=== PATIENT | female | born 1935 | race Caucasian/White ===

== ENCOUNTER 2018-09-12 01:23 | Inpatient (IN) ==
[2018-09-12] MEDS ORDERED: Naloxone 0.4 MG/ML INJ IVP PRN (03:52)
[2018-09-12] MEDS ORDERED: Albuterol 2.5 MG/3 ML NEBULIZER IH PRN (04:37)
--- NOTE | 2018-09-12 04:39 | Internal Med History&Physical ---
Date of Encounter: 09/12/18 Time of Encounter: 04:04 Internal Medicine - H&P: HPI Chief complaint: Shortness of breath Admitted From: Hospital to Hospital Transfer Plans for Post Hospital Care: Home History of present illness: Ms. Zuñiga is a 82 year old female Patient presented to the emergency room with shortness of breath for 1 day. She is noticed increased wheezing and a productive cough. She did not have any c hest pain, but her cough and shortness of breath woke her from sleep. She had been feeling bad previously before going to bed. She denies sick contacts. She has had occasional left arm pain but denies chest pain. She has a history of DVTs and has been dealing with a subtherapeutic INR. She called ambulance to take her to the hospital for further management. At the [place] emergency room patient's vital signs: Temperature 98.1, pulse 78, respiratory rate 16, blood pressure 132/72. She was saturating 90% on 2 L oxygen. CBC: White count 8.1, hemoglobin 11.1 platelets 150. BMP: Sodium 135, potassium 4.1, chloride 98, bicarbonate 28, BUN 15, creatinine 0.97. Lactic acid 2.5, troponin 0.09, BNP 495. Chest X-ray: Bilateral perihilar opacification, edema versus infiltrate. Mass-like opacity within the right upper lobe measuring 3.8 cm in size. Attention on follow-up imaging. If finding persists, CT evaluation will be indicated. A CT angiogram was ordered: IMPRESSION: 1. Limited study with no definite scan evidence for pulmonary embolus. 2. Right upper lobe pneumonia. 3. Coronary artery disease. 4. Hiatal hernia. EKG showed no ischemic changes. Blood cultures were drawn, and patient was started on ceftriaxone and azithromycin. She was given aspirin as well. Breathing treatments were given. A 500 mL bolus of IV fluids was also given and she was started on IV fluids at 125 mL per hour. As her INR was subtherapeutic at 1.7, and additional 2 mg of Coumadin was given. She was transferred to [facility] for further management. Upon my evaluation, patient is resting comfortably in the hospital bed in no acute distress. She denies chest pain, abdominal pain and diarrhea. She did have some nausea and vomiting earlier has felt constipated. Her shortness of breath has improved after the breathing treatments. She denies significant family history. She does have history of DVT in her right leg, and currently has pain in her left leg that she says is similar to her DVTs she had in her right leg. She is a DNR/DNI. Past Med Surg Social Fam HX - Past Medical History Medical history: arthritis, COPD (With oxygen dependency), coronary artery disease, DVT, GERD, GI bleed, hyperlipidemia, hypertension, myocardial infarction, renal disease, thyroid disease, other Additional medical history: RENAL DEFFIECENCY ,RLS Psychiatric history: anxiety, depression - Past Surgical History Surgical History: angioplasty/stent, coronary bypass (CABG) Additional surgical history: HEMORRHAGE OF DIVERTICULUM IN SMALL INTESTINE - Social History Smoking Status: Never smoker Smokeless Tobacco Status: No Alcohol use: none Drug use: none Internal Medicine - H&P: Meds Atorvastatin [Lipitor] 40 mg PO HS 07/29/16 [History] Gabapentin [Gralise] 600 mg PO HS 07/29/16 [History] Levothyroxine [Synthroid] 25 mcg PO DAILY 07/29/16 [History] Metoprolol Tartrate [Lopressor] 50 mg PO DAILY 07/29/16 [History] Omeprazole [PriLOSEC] 40 mg PO DAILY 07/29/16 [History] Potassium 20 meq PO BID 07/29/16 [History] Sertraline [Zoloft] 100 mg PO DAILY 07/29/16 [History] Tramadol HCl [Ultram] 50 mg PO BID PRN 07/29/16 [History] rOPINIRole [Requip] 4 mg PO HS 07/29/16 [History] Warfarin [Coumadin] 2 mg PO QMWF 02/28/17 [History] Cholecalciferol (Vitamin D3) [Vitamin D3] 2,000 unit PO QDPC 03/01/17 [History] Warfarin [Coumadin] 1 mg PO 1800 03/01/17 [History] Plavix 09/12/18 [History] Allergy/AdvReac Type Severity Reaction Status Date / Time acetaminophen [From Percocet] AdvReac Hives Verified 10/24/17 00:04 oxycodone [From Percocet] AdvReac Hives Verified 10/24/17 00:04 Penicillins [PCN] AdvReac Rash Verified 10/24/17 00:04 All Systems PM: A 10-system review of systems was performed and is negative for pertinent findings except as documented above in the HPI. - Constitutional Vitals: Temp Pulse Resp BP Pulse Ox 98.5 F 74 16 112/62 96 09/12/18 03:43 09/12/18 03:43 09/12/18 03:43 09/12/18 03:43 09/12/18 03:43 General appearance: Present: cooperative, A&O X 3, pleasant, no acute distress, answers questions appropriately Exam: - - Head Head exam: Present: normal inspection - Eye Eye exam: Present: EOMI, normal appearance - Respiratory Respiratory exam: Present: rales, wheezes. Absent: decreased breath sounds, CTAB, respiratory distress, rhonchi - Cardiovascular Cardiovascular exam: Present: RRR. Absent: diastolic murmur, systolic murmur - GI/Abdominal GI/Abdominal exam: Present: normal bowel sounds, soft. Absent: tenderness - Extremities Exam Extremities exam: Present: calf tenderness, pedal edema, warm, radial pulses palpable and symmetrical. Absent: tenderness Additional comments: Calf tenderness on the left, with pain up to the thigh - Neurological Exam Neurological exam: Present: no focal deficits, strengths equal and symetr throughout. Absent: motor sensory deficit, facial droop, speech deficit - Skin Skin exam: Present: dry, normal color, warm - Assessment and Plan (1) Right upper lobe pneumonia Current Visit: No Status: Acute Assessment and plan: On chest CT. Patient had blood cultures drawn at the [place] emergency room. She was started on azithromycin and ceftriaxone. Continue IV antibiotics Follow-up blood cultures Monitor for worsening signs of infection Repeat lactic acid level Qualifiers: Pneumonia type: due to unspecified organism Qualified Code(s): J18.1 - Lobar pneumonia, unspecified organism (2) Left leg pain Current Visit: Yes Status: Acute Assessment and plan: Possible DVT, patient had pain in her left lower leg radiating up to the thigh. She says the pain is similar to her previous DVT that she had on the right. She has been dealing with a subtherapeutic INR for the last few INR checks. Continue Coumadin, pharmacy to dose Repeat INR this morning Consider heparin drip if remains subtherapeutic Left lower extremity Doppler to rule out DVT. CT angiogram of the chest negative for PE (3) Elevated troponin Current Visit: Yes Status: Acute Assessment and plan: Patient denies chest pain, EKG showed no ischemic changes. Continue to trend troponins evp and chief operating officer Echocardiogram in the morning (4) Subtherapeutic international normalized ratio (INR) Current Visit: Yes Status: Acute Assessment and plan: INR 1.7 at [place] emergency room. Patient was given an extra 2 mg dose of Coumadin prior to her transport. Repeat INR this morning Pharmacy to dose Coumadin May need heparin drip to bridge Coumadin. (5) DVT prophylaxis Current Visit: Yes Status: Acute Assessment and plan: Continue Coumadin, pharmacy to dose. Repeat INR in the morning Consider heparin drip until Coumadin therapeutic if INR remains low and left lower extremity DVT ruled out. - Time Spent With Patient Total time spent is greater than 50% in coordination of care (as documented) at patient's floor/unit and/or counseling patient: Greater than 35 minutes
[2018-09-12] MEDS: Ipratropium/Albuterol Neb 3 ML IH SCH ×4 (04:52→23:43)
[2018-09-12] MEDS: MethylPREDNISolone 40 MG/ML VIAL IVP SCH ×3 (05:35→16:59)
[2018-09-12] MEDS ORDERED: POTASSIUM 20 MEQ PO SCH (09:00)
[2018-09-12] MEDS: Potassium Chloride Elixir 20 MEQ/15 ML UDC PO SCH (09:30)
[2018-09-12] MEDS: Cholecalciferol (D-3) 1,000 UNIT TABLET PO SCH (09:33)
[2018-09-12] MEDS: Levothyroxine 25 MCG TABLET PO SCH (09:41)
[2018-09-12 10:30] LABS: Hematocrit 33.9 % (35.3-44.9); Hemoglobin 10.7 g/dL (11.5-15.4); Mean Corpuscular HGB Conc 31.6 g/dL (31.6-35.5); Mean Corpuscular Hemoglobin 27.9 pg (28.0-33.3); Mean Corpuscular Volume 88.5 fL (83.0-100.0); Mean Platelet Volume 10.6 fL (9.4-12.4); Platelet Count 139 K/mcL (140-400); Red Blood Count 3.83 M/mcL (3.82-4.97); Red Cell Distribution Width 17.3 % (11.5-14.5)
[2018-09-12 10:48] LABS: BUN/Creatinine Ratio 16 (6-26); Blood Urea Nitrogen 15 mg/dL (8-23); Carbon Dioxide 23 mEq/L (23-29); Chloride 102 mEq/L (98-107); Glucose 170 mg/dL (70-105); Osmolality,Calculated 289 (280-300); Potassium 4.4 mEq/L (3.5-5.1); Sodium 137 mEq/L (136-145); eGFR For Non-African Americans 59 (> 60)
[2018-09-12 10:51] LABS: Troponin I 0.06 ng/mL (< 0.04)
[2018-09-12 10:56] LABS: INR 1.5; Prothrombin Time 17.3 Seconds (9.4-12.1)
--- NOTE | 2018-09-12 11:26 | Event Note ---
Date of Encounter: 09/12/18 Time of Encounter: 11:24 Troponin was 0.09 at the outside hospital, repeat troponin this morning at 0.06. Lactic acid 2.5 at the outside hospital, repeat 2.9. Patient's blood pressure stable, EKG has no acute ST-T change. Patient does not have signs/symptoms of sepsis, although she does have infection in the lungs/pneumonia. We will start patient on IV fluid, telemetry monitoring, EKG as needed, continue cycling troponin, continue trending lactic acid. Echocardiogram in the morning.
[2018-09-12] MEDS: 0.9 % Sodium Chloride 1,000 ML IVC SCH ×2 (12:17→21:09)
[2018-09-12] MEDS ORDERED: *HR* Warfarin 2 MG TABLET PO ONE (18:00)
[2018-09-12] MEDS ORDERED: Warfarin perPT PO PRN (18:00)
[2018-09-12] MEDS: rOPINIRole 1 MG TABLET PO SCH (21:11)
[2018-09-12] MEDS: Gabapentin 300 MG CAPSULE PO SCH (21:11)
[2018-09-13] MEDS: MethylPREDNISolone 40 MG/ML VIAL IVP SCH ×2 (00:25→05:39)
[2018-09-13] MEDS: Azithromycin 500 MG in D5% in Water 250 ML IVPB SCH (03:53)
[2018-09-13] MEDS: Ipratropium/Albuterol Neb 3 ML IH SCH ×4 (03:56→23:14)
[2018-09-13 05:43] LABS: Hematocrit 31.8 % (35.3-44.9); Immature Granulocytes % 0.7 % (0-4); Lymphocytes # 0.2 K/mcL (0.6-4.6); Lymphocytes % 3.9 %; Mean Corpuscular HGB Conc 31.4 g/dL (31.6-35.5); Mean Corpuscular Hemoglobin 27.8 pg (28.0-33.3); Mean Corpuscular Volume 88.3 fL (83.0-100.0); Mean Platelet Volume 11.1 fL (9.4-12.4); Monocytes # 0.3 K/mcL (0.0-1.3); Monocytes % 5.7 %; Neutrophils # 5.4 K/mcL (1.6-8.9); Platelet Count 134 K/mcL (140-400); Red Cell Distribution Width 17.6 % (11.5-14.5); Segmented Neutrophils % 89.7 %
[2018-09-13 05:50] LABS: INR 1.7; Prothrombin Time 19.2 Seconds (9.4-12.1)
[2018-09-13 06:06] LABS: BUN/Creatinine Ratio 23 (6-26); Blood Urea Nitrogen 20 mg/dL (8-23); Calcium 8.4 mg/dL (8.6-10.3); Carbon Dioxide 24 mEq/L (23-29); Chloride 104 mEq/L (98-107); Glucose 231 mg/dL (70-105); Osmolality,Calculated 296 (280-300); Potassium 3.9 mEq/L (3.5-5.1); Sodium 138 mEq/L (136-145); eGFR For Non-African Americans > 60 (> 60)
[2018-09-13] MEDS: Levothyroxine 25 MCG TABLET PO SCH (07:37)
[2018-09-13] MEDS: Cholecalciferol (D-3) 1,000 UNIT TABLET PO SCH (07:37)
[2018-09-13] MEDS: Potassium Chloride Elixir 20 MEQ/15 ML UDC PO SCH (07:37)
[2018-09-13] MEDS: cefTRIAXone 1,000 MG in Water for inj. (sterile) 20 ML 10 ML IVP SCH (07:38)
[2018-09-13] MEDS ORDERED: predniSONE 20 MG TABLET PO SCH (09:00)
--- NOTE | 2018-09-13 09:48 | Internal Med Progress Note ---
Hospitalist Progress Note - Encounter Date of Encounter: 09/13/18 Time of Encounter: 09:46 - Subjective Interval History: Patient seen and examined in the room. Staff note is reported patient had one episodic confusion this morning but was able to be reoriented. Patient reported she is still having cough with yellowish mucus but has improved. She also reported improved shortness of breath. Overnight, patient denies fever, chills, or night sweats. She has no chest pain, palpitation, leg pain, or leg swelling. - Exam Vitals: Temp Pulse Resp BP Pulse Ox 98.5 F 71 18 120/67 96 09/13/18 06:37 09/13/18 06:37 09/13/18 06:37 09/13/18 06:37 09/13/18 06:37 Exam: PHYSICAL EXAMINATION: GENERAL APPEARANCE: The patient is alert, oriented and in no acute distress. HEENT: Head is normocephalic. The sinuses are nontender. Pupils are equal and reactive. The nares are patent. Oropharynx clear without lesions. NECK: Supple without lymphadenopathy. HEART: Regular rate and rhythm. LUNGS: Rhonchi noted on both lung field. ABDOMEN: Soft, nontender, nondistended with good bowel sounds heard. Inguinal area is normal. EXTREMITIES: Without cyanosis, clubbing or edema. NEUROLOGICAL: Gross nonfocal. SKIN: Warm and dry without any rash. - Assessment and Plan (1) Right upper lobe pneumonia Current Visit: Yes Status: Acute Assessment and Plan: Afebrile, vital signs were stable, cough and dyspnea improved. 82 year old female presented with weakness, cough, and dyspnea. CXR showed RUL PNA. initially lactic acid was elevated but was cleared with IVF. No signs of sepsis of septic shock. Patient started on IV azithromycin and Rocephin. Patient reported history of COPD, however, she was not on any maintenance treatment for COPD at home. She was started on IV steroids and bronchodilators upon admission. Continue bronchodilators and change IV steroids to oral. Pending sputum culture, urine for Legionella and pneumococcal antigen. (2) Generalized weakness Current Visit: Yes Status: Acute Assessment and Plan: Generalized weakness could be secondary to recently infection including pneumonia. PT/OT evaluation. (3) Hx of deep venous thrombosis Current Visit: Yes Status: Chronic Assessment and Plan: Repeat Doppler showed no DVT on the left lower extremity, redemonstrated old right femoral DVT. Continue Coumadin, INR 1.7 today, pharmacy to dose. (4) Hypothyroid Current Visit: No Status: Chronic Assessment and Plan: Continue home medications. (5) CAD (coronary artery disease) Current Visit: No Status: Chronic Assessment and Plan: Troponin was borderline, serial troponin was at a flutter rate, inconsistent with ACS. Echocardiogram showed normal wall motion. (6) Hypertension Current Visit: No Status: Chronic Assessment and Plan: BP was well controlled, continue monitoring, continue home medications. (7) DVT prophylaxis Current Visit: Yes Status: Acute Assessment and Plan: Patient on Coumadin. - Time Spent with Patient Total time spent is greater than 50% in coordination of care (as documented) at patient's floor/unit and/or counseling patient: Greater than 35 minutes Plan of Care Discussed with: patient Internal Medicine: Result - Labs CBC & Chem 7: 09/13/18 05:14 09/13/18 05:14 Labs: Short CBC 09/12/18 09/13/18 Range/Units 10:16 05:14 WBC 6.3 6.0 (4.3-11.1) K/mcL Hgb 10.7 L 10.0 L (11.5-15.4) g/dL Hct 33.9 L 31.8 L (35.3-44.9) % Plt Count 139 L 134 L (140-400) K/mcL Neutrophils # 5.4 (1.6-8.9) K/mcL BMP 09/12/18 09/13/18 10:16 05:14 Sodium 137 138 Potassium 4.4 3.9 Chloride 102 104 Carbon Dioxide 23 24 BUN 15 20 Creatinine 0.91 0.88 Glucose 170 H 231 H Calcium 8.0 L 8.4 L Cardiac Enzymes 09/12/18 09/12/18 09/12/18 Range/Units 10:16 15:30 21:39 Troponin I 0.06 H* 0.03 0.04 H* (< 0.04) ng/mL - ABG Interpretation ABG results: PT/INR, D-dimer PT 19.2 Seconds (9.4-12.1) H 09/13/18 05:14 - Impressions Impressions Echocardiogram 09/12/18 04:24 Impressions: LVEF 60%. Atypical septal motion consistent with post-operative status. Mild left ventricular diastolic dysfunction. Right ventricle is mildly dilated with normal function. Bi-atrial enlargement. Mild-moderate mitral regurgitation. Moderate tricuspid regurgitation. Moderate pulmonary hypertension. Left Ventricular Wall Motion: Rest Echo Findings All wall segments showed normal motion. Findings: Study Quality * Technically adequate exam. ECG Findings * Normal sinus rhythm. Left Ventricle * LVEF 60%. * Normal LV chamber size, wall thickness and function. * Atypical septal motion consistent with post-operative status. * Mild left ventricular diastolic dysfunction. Right Ventricle * Mildly dilated with normal function. Left Atrium * Moderate-severely dilated left atrium. Right Atrium * Moderately dilated right atrium. Mitral Valve * Mild mitral annular calcification * Normal mitral valve structure. * No mitral stenosis. * Mild-moderate mitral regurgitation. Aortic Valve * No aortic regurgitation. * Trileaflet aortic valve. * No aortic stenosis. Tricuspid Valve * Tricuspid valve not well visualized. * Moderate tricuspid regurgitation. * Estimated RA pressure is 8 mmHg. * Estimated RVSP is 58 mmHg. * Moderate pulmonary hypertension. Pulmonic Valve * Pulmonic valve is not well visualized. * No pulmonic stenosis. * No pulmonic regurgitation. Pulmonary Artery * Pulmonary artery not well visualized. Aorta * Normally sized aortic root. Pericardium * There is no pericardial effusion present. Interatrial Septum * No evidence of PFO by color Doppler. IVC * The IVC is not dilated. * < 50% respiratory change. Consult Discharge Plan - Plan Referrals: Gisell Farris, HEAD [employer] REPROCESS OPERATOR [Primary Care Provider] - (1) Right upper lobe pneumonia Qualifiers: Pneumonia type: due to unspecified organism Qualified Code(s): J18.1 - Lobar pneumonia, unspecified organism (4) Hypothyroid Qualifiers: Hypothyroidism type: unspecified Qualified Code(s): E03.9 - Hypothyroidism, unspecified (5) CAD (coronary artery disease) Qualifiers: Coronary Disease-Associated Artery/Lesion type: [place] artery [place] vs. transplanted heart: [place] heart Associated angina: without angina Qualified Code(s): I25.10 - Atherosclerotic heart disease of [place] coronary artery without angina pectoris (6) Hypertension Qualifiers: Hypertension type: essential hypertension Qualified Code(s): I10 - Essential (primary) hypertension
[2018-09-13] MEDS ORDERED: *HR* Warfarin 4 MG TABLET PO ONE (18:00)
[2018-09-13] MEDS: Gabapentin 300 MG CAPSULE PO SCH (20:42)
[2018-09-13] MEDS: rOPINIRole 1 MG TABLET PO SCH (20:43)
[2018-09-14 01:58] LABS: INR 1.6; Prothrombin Time 18.3 Seconds (9.4-12.1)
[2018-09-14] MEDS: Azithromycin 500 MG in D5% in Water 250 ML IVPB SCH (04:10)
[2018-09-14] MEDS: Ipratropium/Albuterol Neb 3 ML IH SCH ×4 (04:31→23:51)
[2018-09-14] MEDS: Cholecalciferol (D-3) 1,000 UNIT TABLET PO SCH (09:46)
[2018-09-14] MEDS: cefTRIAXone 1,000 MG in Water for inj. (sterile) 20 ML 10 ML IVP SCH (09:47)
[2018-09-14] MEDS: Potassium Chloride Elixir 20 MEQ/15 ML UDC PO SCH (09:47)
[2018-09-14] MEDS: Levothyroxine 25 MCG TABLET PO SCH (09:47)
--- NOTE | 2018-09-14 10:23 | Internal Med Progress Note ---
Hospitalist Progress Note - Encounter Date of Encounter: 09/14/18 Time of Encounter: 10:20 - Subjective Interval History: Pt seen and examined in the room. She has several episodes of confusion since yesterday. She reported improved cough and dyspnea. Overnight she has no fever, chills, or night sweats. - Exam Vitals: Temp Pulse Resp BP Pulse Ox 97.7 F 75 18 151/76 98 09/14/18 06:42 09/14/18 06:42 09/14/18 09:54 09/14/18 06:42 09/14/18 09:54 Exam: PHYSICAL EXAMINATION: GENERAL APPEARANCE: The patient is alert, oriented and in no acute distress. HEENT: Head is normocephalic. The sinuses are nontender. Pupils are equal and reactive. The nares are patent. Oropharynx clear without lesions. NECK: Supple without lymphadenopathy. HEART: Regular rate and rhythm. LUNGS: Rhonchi noted on both lung field. ABDOMEN: Soft, nontender, nondistended with good bowel sounds heard. Inguinal area is normal. EXTREMITIES: Without cyanosis, clubbing or edema. NEUROLOGICAL: Gross nonfocal. SKIN: Warm and dry without any rash. - Assessment and Plan (1) Right upper lobe pneumonia Current Visit: Yes Status: Acute Assessment and Plan: 09/13 Afebrile, vital signs were stable, cough and dyspnea improved. 82 year old female presented with weakness, cough, and dyspnea. CXR showed RUL PNA. initially lactic acid was elevated but was cleared with IVF. No signs of sepsis of septic shock. Patient started on IV azithromycin and Rocephin. Patient reported history of COPD, however, she was not on any maintenance treatment for COPD at home. She was started on IV steroids and bronchodilators upon admission. Continue bronchodilators and change IV steroids to oral. Pending sputum culture, urine for Legionella and pneumococcal antigen. 09/14 Steroids was discontinued because of episodic confusion/mental status change. BiPAP was ordered per respiratory therapist recommendation. Continue bronchodilators and IV antibiotics. Overall, symptoms are improving. (2) Generalized weakness Current Visit: Yes Status: Acute Assessment and Plan: Generalized weakness could be secondary to recently infection including pneumonia. PT/OT evaluation. (3) Hx of deep venous thrombosis Current Visit: Yes Status: Chronic Assessment and Plan: Repeat Doppler showed no DVT on the left lower extremity, redemonstrated old right femoral DVT. Continue Coumadin, INR 16 today, pharmacy to dose. (4) Hypothyroid Current Visit: No Status: Chronic Assessment and Plan: Continue home medications. (5) CAD (coronary artery disease) Current Visit: No Status: Chronic Assessment and Plan: Troponin was borderline, serial troponin was at a flutter rate, inconsistent with ACS. Echocardiogram showed normal wall motion. (6) Hypertension Current Visit: No Status: Chronic Assessment and Plan: BP was well controlled, continue monitoring, continue home medications. (7) DVT prophylaxis Current Visit: Yes Status: Acute Assessment and Plan: Patient on Coumadin. - Time Spent with Patient Total time spent is greater than 50% in coordination of care (as documented) at patient's floor/unit and/or counseling patient: Greater than 35 minutes Plan of Care Discussed with: patient Internal Medicine: Result - Labs CBC & Chem 7: 09/13/18 05:14 09/13/18 05:14 - ABG Interpretation ABG results: PT/INR, D-dimer PT 18.3 Seconds (9.4-12.1) H 09/14/18 00:45 Consult Discharge Plan - Plan Referrals: Gisell Farris, MARINE FIRER [Primary Care Provider] - ____ (1) Right upper lobe pneumonia Qualifiers: Pneumonia type: due to unspecified organism Qualified Code(s): J18.1 - Lobar pneumonia, unspecified organism (4) Hypothyroid Qualifiers: Hypothyroidism type: unspecified Qualified Code(s): E03.9 - Hypothyroidism, unspecified (5) CAD (coronary artery disease) Qualifiers: Coronary Disease-Associated Artery/Lesion type: [place] artery [place] vs. transplanted heart: [place] heart Associated angina: without angina Qualified Code(s): I25.10 - Atherosclerotic heart disease of [place] coronary artery without angina pectoris (6) Hypertension Qualifiers: Hypertension type: essential hypertension Qualified Code(s): I10 - Essential (primary) hypertension
[2018-09-14] MEDS: Haloperidol Lactate 5 MG/ML VIAL IVP PRN (11:33)
[2018-09-14] MEDS ORDERED: *HR* Warfarin 4 MG TABLET PO ONE (18:00)
[2018-09-14] MEDS: Gabapentin 300 MG CAPSULE PO SCH (21:56)
[2018-09-14] MEDS: rOPINIRole 1 MG TABLET PO SCH (21:56)
[2018-09-14] MEDS: traMADol 50 MG TABLET PO PRN (22:00)
[2018-09-15 03:00] LABS: Eosinophils % 0.5 %; Hematocrit 32.1 % (35.3-44.9); Hemoglobin 10.4 g/dL (11.5-15.4); Immature Granulocytes % 0.5 % (0-4); Lymphocytes # 0.3 K/mcL (0.6-4.6); Lymphocytes % 7.5 %; Mean Corpuscular HGB Conc 32.4 g/dL (31.6-35.5); Mean Corpuscular Hemoglobin 28.4 pg (28.0-33.3); Mean Corpuscular Volume 87.7 fL (83.0-100.0); Mean Platelet Volume 10.6 fL (9.4-12.4); Monocytes # 0.6 K/mcL (0.0-1.3); Monocytes % 14.4 %; Neutrophils # 3.2 K/mcL (1.6-8.9); Platelet Count 153 K/mcL (140-400); Red Blood Count 3.66 M/mcL (3.82-4.97); Red Cell Distribution Width 17.8 % (11.5-14.5); Segmented Neutrophils % 77.1 %
[2018-09-15 03:09] LABS: INR 1.7; Prothrombin Time 19.1 Seconds (9.4-12.1)
[2018-09-15 03:15] LABS: BUN/Creatinine Ratio 26 (6-26); Blood Urea Nitrogen 25 mg/dL (8-23); Calcium 8.4 mg/dL (8.6-10.3); Carbon Dioxide 26 mEq/L (23-29); Chloride 105 mEq/L (98-107); Glucose 84 mg/dL (70-105); Osmolality,Calculated 294 (280-300); Potassium 3.7 mEq/L (3.5-5.1); Sodium 140 mEq/L (136-145); eGFR For Non-African Americans 54 (> 60)
[2018-09-15] MEDS: Ipratropium/Albuterol Neb 3 ML IH SCH ×4 (03:26→22:22)
[2018-09-15] MEDS: Azithromycin 500 MG in D5% in Water 250 ML IVPB SCH (04:23)
[2018-09-15] MEDS: Potassium Chloride Elixir 20 MEQ/15 ML UDC PO SCH (08:46)
[2018-09-15] MEDS: cefTRIAXone 1,000 MG in Water for inj. (sterile) 20 ML 10 ML IVP SCH (08:47)
[2018-09-15] MEDS: Cholecalciferol (D-3) 1,000 UNIT TABLET PO SCH (08:47)
[2018-09-15] MEDS: Levothyroxine 25 MCG TABLET PO SCH (08:47)
--- NOTE | 2018-09-15 11:20 | Internal Med Progress Note ---
Hospitalist Progress Note - Encounter Date of Encounter: 09/15/18 Time of Encounter: 11:20 - Subjective Interval History: Patient was seen and examined at bedside currently she is sleeping she is very difficult to arouse had to perform sternal rub several times before she opened her eyes. She is not on her CPAP. We will order stat ABG. Patient is awaiting placement to ECF - Exam Vitals: Temp Pulse Resp BP Pulse Ox 98.6 F 58 16 147/77 95 09/15/18 11:01 09/15/18 11:01 09/15/18 11:09/15/18 11:09/15/18 11:01 Exam: PHYSICAL EXAMINATION: GENERAL APPEARANCE: Patient is groggy and difficult to arouse HEENT: Head is normocephalic. The sinuses are nontender. Pupils are equal and reactive. The nares are patent. Oropharynx clear without lesions. NECK: Supple without lymphadenopathy. HEART: Regular rate and rhythm. LUNGS: Rhonchi noted on both lung field. ABDOMEN: Soft, nontender, nondistended with good bowel sounds heard. Inguinal area is normal. EXTREMITIES: Without cyanosis, clubbing or edema. NEUROLOGICAL: Gross nonfocal. SKIN: Warm and dry without any rash. - Assessment and Plan (1) Generalized weakness Current Visit: Yes Status: Acute Assessment and Plan: Generalized weakness could be secondary to recently infection including pneumonia. PT/OT evaluation.-Recommending ECF placement[facility] (2) Hypothyroid Current Visit: No Status: Chronic Assessment and Plan: Continue home medications. (3) CAD (coronary artery disease) Current Visit: No Status: Chronic Assessment and Plan: Troponin was borderline, serial troponin was at a flutter rate, inconsistent with ACS. Echocardiogram showed normal wall motion. (4) Hypertension Current Visit: No Status: Chronic Assessment and Plan: BP was well controlled, continue monitoring, continue home medications. (5) Right upper lobe pneumonia Current Visit: Yes Status: Acute Assessment and Plan: 09/13 Afebrile, vital signs were stable, cough and dyspnea improved. 82 year old female presented with weakness, cough, and dyspnea. CXR showed RUL PNA. initially lactic acid was elevated but was cleared with IVF. No signs of sepsis of septic shock. Patient started on IV azithromycin and Rocephin. Patient reported history of COPD, however, she was not on any maintenance treatment for COPD at home. She was started on IV steroids and bronchodilators upon admission. Continue bronchodilators and change IV steroids to oral. Pending sputum culture, urine for Legionella and pneumococcal antigen. 09/14 Steroids was discontinued because of episodic confusion/mental status change. BiPAP was ordered per respiratory therapist recommendation. Continue bronchodilators and IV antibiotics. Overall, symptoms are improving. 09/15 Patient was difficult to arouse today ABG was completed which was normal continue with BiPAP as needed Continue bronchodilators and IV antibiotics Legionella and strep pneumoniae antigens are negative sputum culture is pending (6) DVT prophylaxis Current Visit: Yes Status: Acute Assessment and Plan: Patient on Coumadin. (7) Hx of deep venous thrombosis Current Visit: Yes Status: Chronic Assessment and Plan: Repeat Doppler showed no DVT on the left lower extremity, redemonstrated old right femoral DVT. Continue Coumadin, INR 16 today, pharmacy to dose. - Time Spent with Patient Total time spent is greater than 50% in coordination of care (as documented) at patient's floor/unit and/or counseling patient: Internal Medicine: Result - Labs CBC & Chem 7: 09/15/18 02:20 09/15/18 02:20 Labs: Short CBC 09/15/18 Range/Units 02:20 WBC 4.1 L (4.3-11.1) K/mcL Hgb 10.4 L (11.5-15.4) g/dL Hct 32.1 L (35.3-44.9) % Plt Count 153 (140-400) K/mcL Neutrophils # 3.2 (1.6-8.9) K/mcL BMP 09/15/18 02:20 Sodium 140 Potassium 3.7 Chloride 105 Carbon Dioxide 26 BUN 25 H Creatinine 0.98 Glucose 84 Calcium 8.4 L - ABG Interpretation ABG results: PT/INR, D-dimer PT 19.1 Seconds (9.4-12.1) H 09/15/18 02:20 Consult Discharge Plan - Plan Referrals: Gisell Farris, TABLE GAMES SHIFT MANAGER [Primary Care Provider] - (Appointment has been requested.) (2) Hypothyroid Qualifiers: Hypothyroidism type: unspecified Qualified Code(s): E03.9 - Hypothyroidism, unspecified (3) CAD (coronary artery disease) Qualifiers: Coronary Disease-Associated Artery/Lesion type: [place] artery [place] vs. transplanted heart: [place] heart Associated angina: without angina Qualified Code(s): I25.10 - Atherosclerotic heart disease of [place] coronary artery without angina pectoris (4) Hypertension Qualifiers: Hypertension type: essential hypertension Qualified Code(s): I10 - Essential (primary) hypertension (5) Right upper lobe pneumonia Qualifiers: Pneumonia type: due to unspecified organism Qualified Code(s): J18.1 - Lobar pneumonia, unspecified organism
[2018-09-15 12:18] LABS: ABG Base Excess 3 mEq/L (-2 to 3); ABG HCO3 28 mEq/L (21-27); ABG Oxygen Saturation 97 % (95-98); ABG PCO2 41 mmHg (35-45); ABG PH 7.44 pH Units (7.32-7.45); ABG PO2 86 mmHg (85-104); ABG TCO2 29 mEq/L (20-26)
[2018-09-15] MEDS ORDERED: *HR* Warfarin 3 MG TABLET PO ONE (18:00)
[2018-09-15] MEDS: rOPINIRole 1 MG TABLET PO SCH (21:13)
[2018-09-15] MEDS: Gabapentin 300 MG CAPSULE PO SCH (21:13)
[2018-09-16] MEDS: Azithromycin 500 MG in D5% in Water 250 ML IVPB SCH (03:21)
[2018-09-16] MEDS: Haloperidol Lactate 5 MG/ML VIAL IVP PRN (03:30)
[2018-09-16] MEDS: Ipratropium/Albuterol Neb 3 ML IH SCH ×4 (03:47→22:13)
[2018-09-16 06:48] LABS: Prothrombin Time 22.3 Seconds (9.4-12.1)
[2018-09-16] MEDS: Levothyroxine 25 MCG TABLET PO SCH (08:43)
[2018-09-16] MEDS: Potassium Chloride Elixir 20 MEQ/15 ML UDC PO SCH (08:43)
[2018-09-16] MEDS: cefTRIAXone 1,000 MG in Water for inj. (sterile) 20 ML 10 ML IVP SCH (08:43)
[2018-09-16] MEDS: Cholecalciferol (D-3) 1,000 UNIT TABLET PO SCH (08:43)
--- NOTE | 2018-09-16 16:53 | Internal Med Progress Note ---
Hospitalist Progress Note - Encounter Date of Encounter: 09/16/18 Time of Encounter: 16:52 - Subjective Interval History: Patient was seen and examined at bedside she is much more alert today. Discussed discharged to ECF possibly in the a.m. which patient verbalized understanding. - Exam Vitals: Temp Pulse Resp BP Pulse Ox 98.4 F 77 16 154/77 98 09/16/18 15:42 09/16/18 15:42 09/16/18 15:51 09/16/18 15:42 09/16/18 15:51 Exam: PHYSICAL EXAMINATION: GENERAL APPEARANCE: Patient is alert and appropriate following simple commands HEENT: Head is normocephalic. The sinuses are nontender. Pupils are equal and reactive. The nares are patent. Oropharynx clear without lesions. NECK: Supple without lymphadenopathy. HEART: Regular rate and rhythm. LUNGS: Rhonchi noted on both lung field. ABDOMEN: Soft, nontender, nondistended with good bowel sounds heard. Inguinal area is normal. EXTREMITIES: Without cyanosis, clubbing or edema. NEUROLOGICAL: Gross nonfocal. SKIN: Warm and dry without any rash. - Assessment and Plan (1) Generalized weakness Current Visit: Yes Status: Acute Assessment and Plan: Generalized weakness could be secondary to recently infection including pneumonia. PT/OT evaluation.-Recommending ECF placement[facility] (2) Hypothyroid Current Visit: No Status: Chronic Assessment and Plan: Continue home medications. (3) CAD (coronary artery disease) Current Visit: No Status: Chronic Assessment and Plan: Troponin was borderline, serial troponin was at a flutter rate, inconsistent with ACS. Echocardiogram showed normal wall motion. (4) Hypertension Current Visit: No Status: Chronic Assessment and Plan: BP was well controlled, continue monitoring, continue home medications. (5) Right upper lobe pneumonia Current Visit: Yes Status: Acute Assessment and Plan: 09/13 Afebrile, vital signs were stable, cough and dyspnea improved. 82 year old female presented with weakness, cough, and dyspnea. CXR showed RUL PNA. initially lactic acid was elevated but was cleared with IVF. No signs of sepsis of septic shock. Patient started on IV azithromycin and Rocephin. Patient reported history of COPD, however, she was not on any maintenance treatment for COPD at home. She was started on IV steroids and bronchodilators upon admission. Continue bronchodilators and change IV steroids to oral. Pending sputum culture, urine for Legionella and pneumococcal antigen. 09/14 Steroids was discontinued because of episodic confusion/mental status change. BiPAP was ordered per respiratory therapist recommendation. Continue bronchodilators and IV antibiotics. Overall, symptoms are improving. 09/15 Patient was difficult to arouse today ABG was completed which was normal continue with BiPAP as needed Continue bronchodilators and IV antibiotics Legionella and strep pneumoniae antigens are negative sputum culture is pending 09/16 Patient is alert and appropriate following simple commands Continue with bronchodilators and IV antibiotics (6) DVT prophylaxis Current Visit: Yes Status: Acute Assessment and Plan: Patient on Coumadin. (7) Hx of deep venous thrombosis Current Visit: Yes Status: Chronic Assessment and Plan: Repeat Doppler showed no DVT on the left lower extremity, redemonstrated old right femoral DVT. Continue Coumadin, INR 16 today, pharmacy to dose. - Time Spent with Patient Total time spent is greater than 50% in coordination of care (as documented) at patient's floor/unit and/or counseling patient: Internal Medicine: Result - Labs CBC & Chem 7: 09/15/18 02:20 09/15/18 02:20 - ABG Interpretation ABG results: ABG ABG pH 7.44 pH Units (7.32-7.45) 09/15/18 12:15 ABG pCO2 41 mmHg (35-45) 09/15/18 12:15 ABG pO2 86 mmHg (85-104) 09/15/18 12:15 ABG O2 Saturation 97 % (95-98) 09/15/18 12:15 PT/INR, D-dimer PT 22.3 Seconds (9.4-12.1) H 09/16/18 05:18 Consult Discharge Plan - Plan Referrals: Gisell Farris, HOUSE PARENT [Primary Care Provider] - (Appointment has been requested.) (2) Hypothyroid Qualifiers: Hypothyroidism type: unspecified Qualified Code(s): E03.9 - Hypothyroidism, unspecified (3) CAD (coronary artery disease) Qualifiers: Coronary Disease-Associated Artery/Lesion type: [place] artery [place] vs. transplanted heart: [place] heart Associated angina: without angina Qualified Code(s): I25.10 - Atherosclerotic heart disease of [place] coronary artery without angina pectoris (4) Hypertension Qualifiers: Hypertension type: essential hypertension Qualified Code(s): I10 - Essential (primary) hypertension (5) Right upper lobe pneumonia Qualifiers: Pneumonia type: due to unspecified organism Qualified Code(s): J18.1 - Lobar pneumonia, unspecified organism
[2018-09-16] MEDS ORDERED: *HR* Warfarin 4 MG TABLET PO ONE (18:00)
[2018-09-16] MEDS: rOPINIRole 1 MG TABLET PO SCH (20:16)
[2018-09-16] MEDS: Gabapentin 300 MG CAPSULE PO SCH (20:16)
[2018-09-16] MEDS: traMADol 50 MG TABLET PO PRN (20:43)
[2018-09-17] MEDS: Ipratropium/Albuterol Neb 3 ML IH SCH ×3 (04:10→16:05)
[2018-09-17] MEDS: Azithromycin 500 MG in D5% in Water 250 ML IVPB SCH (04:36)
[2018-09-17 06:29] LABS: Prothrombin Time 22.5 Seconds (9.4-12.1)
[2018-09-17] MEDS: Potassium Chloride Elixir 20 MEQ/15 ML UDC PO SCH (08:39)
[2018-09-17] MEDS: Cholecalciferol (D-3) 1,000 UNIT TABLET PO SCH (08:39)
[2018-09-17] MEDS: Levothyroxine 25 MCG TABLET PO SCH (08:39)
[2018-09-17] MEDS: cefTRIAXone 1,000 MG in Water for inj. (sterile) 20 ML 10 ML IVP SCH (08:39)
[2018-09-17] MEDS: traMADol 50 MG TABLET PO PRN (08:43)
[2018-09-17 14:56] VITALS: BP 150/74
--- NOTE | 2018-09-17 15:56 | Discharge Summary ---
- NOTES TO OUTPATIENT PROVIDER Notes to Outpatient Provider: patient admitted with pneumonia treated with steroids and ATB needs PT/OT- rehab Orders not resulted at time of discharge: Pending orders 09/13/18 10:00 Culture,Sputum with Gram Stain [RM] Routine 09/17/18 14:11 EKG [ECG 12 lead ECG] [ECG] Stat 09/18/18 04:00 INR/PT [Prothrombin Time INR] [COAG] AM 0400 09/19/18 04:00 INR/PT [Prothrombin Time INR] [COAG] AM 0400 09/20/18 04:00 INR/PT [Prothrombin Time INR] [COAG] AM 040 Date of Encounter: 09/17/18 Time of Encounter: 15:47 - Discharge Diagnosis (1) Generalized weakness Priority: Primary Status: Acute (2) Hypothyroid Priority: Secondary Status: Chronic Qualifiers: Hypothyroidism type: unspecified Qualified Code(s): E03.9 - Hypothyroidism, unspecified (3) CAD (coronary artery disease) Priority: Secondary Status: Chronic Qualifiers: Coronary Disease-Associated Artery/Lesion type: [place] artery [place] vs. transplanted heart: [place] heart Associated angina: without angina Qualified Code(s): I25.10 - Atherosclerotic heart disease of [place] coronary artery without angina pectoris (4) Hypertension Priority: Secondary Status: Chronic Qualifiers: Hypertension type: essential hypertension Qualified Code(s): I10 - Essential (primary) hypertension (5) Right upper lobe pneumonia Priority: Primary Status: Acute Qualifiers: Pneumonia type: due to unspecified organism Qualified Code(s): J18.1 - Lobar pneumonia, unspecified organism (6) Hx of deep venous thrombosis Priority: Secondary Status: Chronic Hospital course: Ms. Zuñiga is a 82 year old female patient presented to ER with increasing shortness of breath for approximately one day as well as wheezing and cough. She was hypoxic saturating 90% on 2 L of oxygen chest x-ray was obtained which did show bilateral perihilar opacifications CTA with no evidence of pulmonary embolism blood cultures were drawn and patient was initiated on Rocephin and azithromycin blood cultures were negative as well negative legionella and Streptococcus pneumoniae antigen. Initial troponin was elevated at the outside hospital -was flat adynamic EKG with no ST-T wave abnormalities cardiac echo EF of 60% atypical septal motion consistent with postoperative state mild left ventricular diastolic dysfunction right ventricle mildly dilated biatrial enlargement mild to moderate mitral regurg moderate tricuspid moderate pulmonary hypertension. 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 She will be discharged with antibiotics for 2 more days as well as oxygen. Currently she is hemodynamically stable this time is ready for discharge. - Time Spent with Patient Total time spent providing and/or coordinating discharge services: - Discharge Medications Prescriptions: New rOPINIRole [Requip] 4 mg PO HS tablet Levothyroxine [Synthroid] 25 mcg PO DAILY tablet Azithromycin [Zithromax] 250 mg PO DAILY #2 tablet Continued Clopidogrel [Plavix] 75 mg PO DAILY Albuterol Sulfate [Ventolin Hfa] 2 puff IH Q6H PRN PRN Reason: Shortness Of Breath Warfarin Sodium 4 mg PO [facility] Nystatin Cream [Mycostatin Cream] 1 applic TP BID Omeprazole [PriLOSEC] 40 mg PO DAILY Tramadol HCl [Ultram] 50 mg PO BID PRN PRN Reason: Pain Sertraline [Zoloft] 100 mg PO DAILY Atorvastatin [Lipitor] 40 mg PO HS Potassium 20 meq PO BID Metoprolol Tartrate [Lopressor] 50 mg PO DAILY Warfarin [Coumadin] 2 mg PO MOWEFR Cholecalciferol (Vitamin D3) [Vitamin D3] 2,000 unit PO QDPC No Action Ropinirole HCl 4 mg PO HS Levothyroxine [Synthroid] 88 mcg PO QAM Home Medications: Atorvastatin [Lipitor] 40 mg PO HS 07/29/16 [History] Metoprolol Tartrate [Lopressor] 50 mg PO DAILY 07/29/16 [History] Omeprazole [PriLOSEC] 40 mg PO DAILY 07/29/16 [History] Potassium 20 meq PO BID 07/29/16 [History] Sertraline [Zoloft] 100 mg PO DAILY 07/29/16 [History] Tramadol HCl [Ultram] 50 mg PO BID PRN 07/29/16 [History] Warfarin [Coumadin] 2 mg PO MOWEFR 02/28/17 [History] Cholecalciferol (Vitamin D3) [Vitamin D3] 2,000 unit PO QDPC 11/05/17 [History] Clopidogrel [Plavix] 75 mg PO DAILY 09/12/18 [History] Albuterol Sulfate [Ventolin Hfa] 2 puff IH Q6H PRN 09/13/18 [History] Levothyroxine [Synthroid] 88 mcg PO QAM 09/13/18 [History] Nystatin Cream [Mycostatin Cream] 1 applic TP BID 09/13/18 [History] Ropinirole HCl 4 mg PO HS 09/13/18 [History] Warfarin Sodium 4 mg PO SUTUTHSA 09/13/18 [History] Azithromycin [Zithromax] 250 mg PO DAILY #2 tablet 09/17/18 [Rx] Levothyroxine [Synthroid] 25 mcg PO DAILY tablet 09/17/18 [Rx] rOPINIRole [Requip] 4 mg PO HS tablet 09/17/18 [Rx] Allergies/Adverse Reactions: Allergy/AdvReac Type Severity Reaction Status Date / Time acetaminophen [From Percocet] AdvReac Hives Verified 10/24/17 00:04 oxycodone [From Percocet] AdvReac Hives Verified 10/24/17 00:04 Penicillins [PCN] AdvReac Rash Verified 10/24/17 00:04 Date of admission: 09/14/18 14:22 Primary care physician: Gisell Farris CNP Consults: 09/12/18 04:37 Consult to Nurse Navigator [CONS] Routine Comment: PNEUMONIA 09/13/18 07:49 Consult to Occupational Therapy [CONS] Routine Comment: Evaluate, develop and implement POC Reason for Consult: eval and treat Does patient have active BEDREST order?: No Is patient medically & hemodynamically stable?: Yes Patient assessed for mobility or mobilized this visit?: No Consult to Physical Therapy [CONS] Routine Comment: Evaluate, develop and implement POC Reason for Consult: eval and treat Does patient have active BEDREST order?: No Is patient medically & hemodynamically stable?: Yes Patient assessed for mobility or mobilized this visit?: No 09/13/18 15:07 Consult to Art Instructor [CONS] Routine Reason for SW Consult: PLACEMENT TO SNF Discharging clinician: Susanna Devine Anticipated date of discharge: 09/17/18 - Constitutional Vitals: Temp Pulse Resp BP Pulse Ox 97.4 F L 73 16 150/74 96 09/17/18 14:51 09/17/18 14:51 09/17/18 14:51 09/17/18 14:51 09/17/18 14:51 General appearance: Present: cooperative, A&O X 3, pleasant, no acute distress, answers questions appropriately Exam: Skin: Free of rash and discoloration. Eyes: Sclera is white. There is no discharge from eyes. ENMT: Oral/pharyngeal mucosa is normal in appearance. There is no discharge from nose or ears. Respiratory: Normal breath sounds with no crackles and wheezes bilaterally. CV: Heart is regular with no gallop or murmur. GI: Abdomen is flat and soft with no palpable mass or visceromegaly. : There is no tenderness in patient's flanks bilaterally. Neuro exam: He has good strength in upper and lower extremities. He has normal eye movements. Psychiatric: He has normal affect. His thought process is appropriate to the situation. - Patient Status Disposition: Transfer SNF Condition: Good Functional capacity at discharge: uses cane/walker Overall status at discharge: patient is back to baseline - Discharge Instructions Follow Up With: Gisell Farris, TRANSPORTATION ENGINEER [Primary Care Provider] - (Appointment has been requested.) - Diet and Activity Activity: as per physical therapy Diet: advance to your usual diet
--- NOTE | 2018-09-17 16:22 | Physician Discharge Referral ---
ExtendedCare Referral Info Transfer To: [facility] Provider in Charge: Susanna cortes Provider in Charge after Transfer: PCP Institutional Level of Care: Skilled - Diagnosis (1) Generalized weakness Priority: Primary Status: Acute (2) Hypothyroid Priority: Secondary Status: Chronic (3) CAD (coronary artery disease) Priority: Secondary Status: Chronic (4) Hypertension Priority: Secondary Status: Chronic (5) Right upper lobe pneumonia Priority: Primary Status: Acute (6) Hx of deep venous thrombosis Priority: Secondary Status: Chronic - Transfer Medications Prescriptions: Azithromycin [Zithromax] 250 mg PO DAILY #2 tablet Home Medications: Atorvastatin [Lipitor] 40 mg PO HS 07/29/16 [History] Metoprolol Tartrate [Lopressor] 50 mg PO DAILY 07/29/16 [History] Omeprazole [PriLOSEC] 40 mg PO DAILY 07/29/16 [History] Potassium 20 meq PO BID 07/29/16 [History] Sertraline [Zoloft] 100 mg PO DAILY 07/29/16 [History] Tramadol HCl [Ultram] 50 mg PO BID PRN 07/29/16 [History] Warfarin [Coumadin] 2 mg PO MOWEFR 02/28/17 [History] Cholecalciferol (Vitamin D3) [Vitamin D3] 2,000 unit PO QDPC 03/01/17 [History] Clopidogrel [Plavix] 75 mg PO DAILY 09/12/18 [History] Albuterol Sulfate [Ventolin Hfa] 2 puff IH Q6H PRN 09/13/18 [History] Levothyroxine [Synthroid] 88 mcg PO QAM 09/13/18 [History] Nystatin Cream [Mycostatin Cream] 1 applic TP BID 09/13/18 [History] Ropinirole HCl 4 mg PO HS 09/13/18 [History] Warfarin Sodium 4 mg PO SUTUTHSA 09/13/18 [History] Azithromycin [Zithromax] 250 mg PO DAILY #2 tablet 09/17/18 [Rx] Levothyroxine [Synthroid] 25 mcg PO DAILY tablet 09/17/18 [Rx] rOPINIRole [Requip] 4 mg PO HS tablet 09/17/18 [Rx] Allergies/Adverse Reactions: Allergy/AdvReac Type Severity Reaction Status Date / Time acetaminophen [From Percocet] AdvReac Hives Verified 10/24/17 00:04 oxycodone [From Percocet] AdvReac Hives Verified 10/24/17 00:04 Penicillins [PCN] AdvReac Rash Verified 10/24/17 00:04 - Respiratory Orders Oxygen / L per min Smoking Cessation: Smoking cessation has been advised. For more information, call the [place] Tobacco Quit Line at 1-648-ZPDA-NOW. - Advance Directives Code Status: DNR-Arrest/Don't Intubate - Rehabiliation Orders Rehab Potential: Good Rehab Orders: Evaluation for Physical Therapy, Evaluation for Occupational Therapy - Diet Orders Cardiac CERTIFICATION: I certify that the transfer of the above named patient to an Extended Care Facility is necessary for the continuing treatment of the diagnosis listed. The above information is true and accurate reflection of patient's current condition. Confidential - Redisclosure prohibited without a patient's written consent.
[2018-09-17] MEDS ORDERED: *HR* Warfarin 3 MG TABLET PO ONE (18:00)
--- NOTE | 2018-09-18 13:57 | Electrocardiograph Report ---
[place] [id number] Test Date: 2018-09-17 Pat Name: Dionisio Zuñiga Department: [id number] Room: 3B54 Gender: F Food Packer: : [id number] Requested By: Susanna Devine Order Number: [id number] Reading MD: Donald Lemos Measurements Intervals [place] Rate: 73 P: -54 IN: 136 QRS: -19 QRSD: 132 T: 62 QT: 438 QTc: 464 Interpretive Statements ECTOPIC ATRIAL RHYTHM LEFT BUNDLE BRANCH BLOCK Electronically Signed On 09-18-2018 13:55:51 EDT by Donald Lemos
== END 2018-09-17 18:15 | DRG 194 ==
LOC: 3BNU
PROVIDERS: ADMIT Family Medicine; ATTEND Family Medicine

== ENCOUNTER 2020-01-08 19:54 | Inpatient (IN) ==
[2020-01-08 22:41] LABS: Adenovirus Not Detected (Not Detect); Bordetella Pertussis Not Detected (Not Detect); Chlamydophila pneumoniae Not Detected (Not Detect); Coronavirus 229E Not Detected (Not Detect); Coronavirus HKU1 Not Detected (Not Detect); Coronavirus NL63 Not Detected (Not Detect); Coronavirus OC43 Not Detected (Not Detect); Human Metapneumovirus Not Detected (Not Detect); Human Rhinovirus/Enterovirus Not Detected (Not Detect); Influenza A Subtype 2009 H1 Not Detected (Not Detect); Influenza B Not Detected (Not Detect); Mycoplasma pneumoniae Not Detected (Not Detect); Parainfluenza Virus 1 Not Detected (Not Detect); Parainfluenza Virus 2 Not Detected (Not Detect); Parainfluenza Virus 3 Not Detected (Not Detect); Parainfluenza Virus 4 Not Detected (Not Detect); Respiratory Syncytial Virus Not Detected (Not Detect); SARS-CoV-2 Not Detected (Not Detect)
[2020-01-08] MEDS ORDERED: Naloxone 0.4 MG/ML INJ IVP PRN (23:50)
[2020-01-08] MEDS ORDERED: Acetaminophen 325 MG TABLET PO PRN (23:50)
[2020-01-08] MEDS ORDERED: Ondansetron 4 MG/2 ML VIAL IVP PRN (23:50)
[2020-01-09] MEDS ORDERED: Levalbuterol 1 PUFF INHALER IH PRN (01:03)
[2020-01-09] MEDS ORDERED: Dextrose Gel 15 GM/37.5 ML TUBE PO PRN ×2 (01:04)
[2020-01-09] MEDS ORDERED: *HR* Dextrose 50 % in Water (Vial) 50 ML VIAL IVP PRN (01:04)
[2020-01-09] MEDS ORDERED: D5% in Water 1,000 ML IVC PRN (01:04)
[2020-01-09 02:44] LABS: Basophils % 0.2 %; Hematocrit 39.5 % (35.3-44.9); Hemoglobin 12.6 g/dL (11.5-15.4); Immature Granulocytes % 1.1 % (0-4); Lymphocytes # 0.5 K/mcL (0.6-4.6); Lymphocytes % 10.1 %; Mean Corpuscular HGB Conc 31.9 g/dL (31.6-35.5); Mean Corpuscular Hemoglobin 28.9 pg (28.0-33.3); Mean Corpuscular Volume 90.6 fL (83.0-100.0); Mean Platelet Volume 10.3 fL (9.4-12.4); Monocytes # 0.6 K/mcL (0.0-1.3); Monocytes % 13.9 %; Platelet Count 197 K/mcL (140-400); Red Blood Count 4.36 M/mcL (3.82-4.97); Red Cell Distribution Width 16.2 % (11.5-14.5); Segmented Neutrophils % 74.7 %; White Blood Count 4.5 K/mcL (4.3-11.1)
[2020-01-09 02:48] LABS: INR 1.5; Prothrombin Time 17.6 Seconds (9.4-12.1)
[2020-01-09 02:53] LABS: Neutrophils # 3.4 K/mcL (1.6-8.9)
[2020-01-09 03:04] LABS: Alanine Aminotransferase 10 Units/L (7-52); Albumin 3.4 g/dL (3.5-5.7); Albumin/Globulin Ratio 1.2 (1.1-2.2); Alkaline Phosphatase 59 Units/L (34-104); Aspartate Amino Transferase 15 Units/L (13-39); BUN/Creatinine Ratio 25 (6-26); Bilirubin,Total 0.6 mg/dL (0.3-1.0); Blood Urea Nitrogen 21 mg/dL (8-23); Calcium 8.8 mg/dL (8.6-10.3); Carbon Dioxide 24 mEq/L (23-29); Chloride 104 mEq/L (98-107); Chol/HDL Ratio 3.3 (0-4.9); Cholesterol 126 mg/dL (< 200); Globulin 2.8 g/dL (2.4-3.5); Glucose 131 mg/dL (70-105); HDL Cholesterol 38 mg/dL (40-59); LDL Cholesterol,Calculated 66 mg/dL (< 100); Magnesium 1.6 mg/dL (1.6-2.6); Osmolality,Calculated 297 (280-300); Sodium 141 mEq/L (136-145); Total Protein 6.2 g/dL (6.4-8.9); Triglycerides 109 mg/dL (< 150); eGFR For African Americans > 60 (> 60); eGFR For Non-African Americans > 60 (> 60)
[2020-01-09 03:16] LABS: Platelet Estimate Normal (Normal)
[2020-01-09] MEDS: Insulin LISPRO 300 UNITS/3 ML VIAL SQ SCH ×4 (03:18→17:18)
[2020-01-09] MEDS ORDERED: *HR* Heparin 5,000 UNIT/ML VIAL IVP PRN ×2 (03:28)
[2020-01-09] MEDS ORDERED: Perflutren Lipid Microsphere 1.3 ML in 0.9 % Sodium Chloride 8.7 ML IVP PRN (03:29)
[2020-01-09] MEDS ORDERED: Heparin 25,000UNIT/250ML 1/2NS 25,000 UNIT/250 ML IV.SOLN IVC SCH (03:30)
[2020-01-09 04:08] LABS: Hemoglobin 12.3 g/dL (11.5-15.4); Mean Corpuscular Hemoglobin 27.6 pg (28.0-33.3); Mean Corpuscular Volume 91.9 fL (83.0-100.0); Mean Platelet Volume 10.5 fL (9.4-12.4); Platelet Count 189 K/mcL (140-400); Red Blood Count 4.46 M/mcL (3.82-4.97); Red Cell Distribution Width 16.4 % (11.5-14.5); White Blood Count 4.7 K/mcL (4.3-11.1)
[2020-01-09 04:13] LABS: Heparin anti-factor XA UFH 0.31 IU/mL (0.30-0.70)
[2020-01-09 04:14] LABS: INR 1.5; Prothrombin Time 16.6 Seconds (9.4-12.1)
[2020-01-09 04:37] LABS: Bilirubin,Urine Small (Negative); Blood,Urine Moderate (Negative); Clarity,Urine Cloudy (Clear); Color,Urine Yellow (Yellow); Glucose,Urine (UA) Normal (Normal); Ketones,Urine Trace mg/dL (Negative); Leukocyte Esterase,Urine Small (Negative); Nitrite,Urine Negative (Negative); PH,Urine 5.5 pH Units (5.0-8.0); Protein,Urine 100 mg/dL (Neg-Trace); Specific Gravity,Urine >= 1.030 (1.010-1.025); Urobilinogen,Urine Normal (Normal)
[2020-01-09 04:43] LABS: Amorphous Sediment,Urine Few per hpf (None-Few); Bacteria,Urine Many per hpf (None-Few); Budding Yeast,Urine Few per hpf (None Seen); Hyaline Casts,Urine Many per lpf (None Seen); Mucus,Urine Many per lpf (None-Few); RBC,Urine 15-30 per hpf (0-3); Squamous Epithelial Cell,Urine Few per hpf (None-Few); Transitional Epi Cells,Urine Few per hpf (None-Few); WBC,Urine TNTC per hpf (0-3)
[2020-01-09] MEDS ORDERED: methylPREDNISolone 125 MG/2 ML VIAL IVP SCH (08:00)
[2020-01-09] MEDS ORDERED: Apixaban 5 MG TABLET PO SCH (09:00)
[2020-01-09] MEDS: cefTRIAXone 1,000 MG in 0.9 % Sodium Chloride Mini Bag 100 ML IVPB SCH (09:53)
[2020-01-09] MEDS: Divalproex (12 HR) 250 MG TABLET PO SCH ×2 (10:03→21:44)
[2020-01-09] MEDS: Ipratropium/Albuterol Neb 3 ML IH SCH ×5 (10:33→23:13)
[2020-01-09] MEDS: Azithromycin 500 MG in 0.9 % Sodium Chloride 250 ML IVPB SCH (10:48)
[2020-01-09] MEDS: MetroNIDAZOLE 500 MG/100 ML 500 MG/100 ML BAG IVPB SCH ×2 (10:56→16:43)
[2020-01-09 11:25] LABS: Estimated Average Glucose 108 mg/dl
[2020-01-09] MEDS: methylPREDNISolone 125 MG/2 ML VIAL IVP SCH (18:18)
[2020-01-09] MEDS ORDERED: 0.9 % Sodium Chloride 1,000 ML IV ONE (18:28)
[2020-01-09] MEDS: hydrOXYzine pamoate 25 MG CAPSULE PO SCH (21:44)
[2020-01-09] MEDS: Apixaban 5 MG TABLET PO SCH (21:44)
[2020-01-10] MEDS: MetroNIDAZOLE 500 MG/100 ML 500 MG/100 ML BAG IVPB SCH ×4 (00:13→23:53)
[2020-01-10 00:42] LABS: Mean Corpuscular HGB Conc 30.9 g/dL (31.6-35.5); Mean Corpuscular Hemoglobin 28.1 pg (28.0-33.3); Mean Corpuscular Volume 90.9 fL (83.0-100.0); Mean Platelet Volume 10.2 fL (9.4-12.4); Platelet Count 143 K/mcL (140-400); Red Blood Count 3.63 M/mcL (3.82-4.97); Red Cell Distribution Width 16.4 % (11.5-14.5); White Blood Count 4.8 K/mcL (4.3-11.1)
[2020-01-10 01:00] LABS: BUN/Creatinine Ratio 31 (6-26); Blood Urea Nitrogen 27 mg/dL (8-23); Calcium 8.1 mg/dL (8.6-10.3); Carbon Dioxide 25 mEq/L (23-29); Chloride 105 mEq/L (98-107); Glucose 171 mg/dL (70-105); Osmolality,Calculated 297 (280-300); Potassium 3.7 mEq/L (3.5-5.1); Sodium 139 mEq/L (136-145); eGFR For African Americans > 60 (> 60); eGFR For Non-African Americans > 60 (> 60)
[2020-01-10 01:02] LABS: Hemoglobin 10.2 g/dL (11.5-15.4)
[2020-01-10 02:03] LABS: Lymphocytes # 0.3 K/mcL (0.6-4.6); Monocytes # 0.2 K/mcL (0.0-1.3); Neutrophils # 4.3 K/mcL (1.6-8.9); Platelet Estimate Normal (Normal)
[2020-01-10] MEDS: Ipratropium/Albuterol Neb 3 ML IH SCH ×5 (03:43→19:55)
[2020-01-10] MEDS: methylPREDNISolone 125 MG/2 ML VIAL IVP SCH ×2 (06:06→17:27)
[2020-01-10] MEDS: Insulin LISPRO 300 UNITS/3 ML VIAL SQ SCH ×3 (08:01→16:12)
[2020-01-10] MEDS: Apixaban 5 MG TABLET PO SCH ×2 (08:08→21:05)
[2020-01-10] MEDS: cefTRIAXone 1,000 MG in 0.9 % Sodium Chloride Mini Bag 100 ML IVPB SCH (09:18)
[2020-01-10] MEDS: Divalproex (12 HR) 250 MG TABLET PO SCH ×2 (09:18→21:06)
[2020-01-10] MEDS: Azithromycin 500 MG in 0.9 % Sodium Chloride 250 ML IVPB SCH (09:53)
[2020-01-10] MEDS ORDERED: Isovue-370 500 ML BOTTLE IVP ONE (11:09)
[2020-01-10] MEDS: hydrOXYzine pamoate 25 MG CAPSULE PO SCH (21:05)
[2020-01-11] MEDS: Ipratropium/Albuterol Neb 3 ML IH SCH ×6 (00:37→20:09)
[2020-01-11 04:06] LABS: Hematocrit 28.7 % (35.3-44.9); Immature Granulocytes % 1.2 % (0-4); Lymphocytes # 0.2 K/mcL (0.6-4.6); Lymphocytes % 5.3 %; Mean Corpuscular HGB Conc 31.4 g/dL (31.6-35.5); Mean Corpuscular Hemoglobin 28.6 pg (28.0-33.3); Mean Corpuscular Volume 91.1 fL (83.0-100.0); Monocytes # 0.3 K/mcL (0.0-1.3); Monocytes % 6.9 %; Neutrophils # 3.8 K/mcL (1.6-8.9); Platelet Count 159 K/mcL (140-400); Red Blood Count 3.15 M/mcL (3.82-4.97); Red Cell Distribution Width 16.6 % (11.5-14.5); Segmented Neutrophils % 86.6 %; White Blood Count 4.3 K/mcL (4.3-11.1)
[2020-01-11 04:17] LABS: BUN/Creatinine Ratio 35 (6-26); Blood Urea Nitrogen 26 mg/dL (8-23); Calcium 8.4 mg/dL (8.6-10.3); Carbon Dioxide 28 mEq/L (23-29); Chloride 107 mEq/L (98-107); Glucose 140 mg/dL (70-105); Magnesium 1.9 mg/dL (1.6-2.6); Osmolality,Calculated 299 (280-300); Potassium 3.3 mEq/L (3.5-5.1); Sodium 141 mEq/L (136-145); eGFR For African Americans > 60 (> 60); eGFR For Non-African Americans > 60 (> 60)
[2020-01-11] MEDS: methylPREDNISolone 125 MG/2 ML VIAL IVP SCH (06:01)
[2020-01-11] MEDS: Apixaban 5 MG TABLET PO SCH ×2 (08:00→19:33)
[2020-01-11] MEDS: cefTRIAXone 1,000 MG in 0.9 % Sodium Chloride Mini Bag 100 ML IVPB SCH (08:01)
[2020-01-11] MEDS: Divalproex (12 HR) 250 MG TABLET PO SCH ×2 (08:01→19:33)
[2020-01-11] MEDS: MetroNIDAZOLE 500 MG/100 ML 500 MG/100 ML BAG IVPB SCH ×2 (08:10→15:09)
[2020-01-11] MEDS: Insulin LISPRO 300 UNITS/3 ML VIAL SQ SCH ×3 (08:13→16:04)
[2020-01-11] MEDS: Azithromycin 500 MG in 0.9 % Sodium Chloride 250 ML IVPB SCH (08:14)
[2020-01-11] MEDS: hydrOXYzine pamoate 25 MG CAPSULE PO SCH (19:34)
[2020-01-11] MEDS: metroNIDAZOLE 500 MG TABLET PO SCH (19:34)
[2020-01-12] MEDS: Ipratropium/Albuterol Neb 3 ML IH SCH ×5 (00:17→15:22)
[2020-01-12 03:40] LABS: Basophils % 0.2 %; Eosinophils % 0.4 %; Hematocrit 30.5 % (35.3-44.9); Hemoglobin 9.4 g/dL (11.5-15.4); Immature Granulocytes % 0.4 % (0-4); Lymphocytes # 0.3 K/mcL (0.6-4.6); Lymphocytes % 6.9 %; Mean Corpuscular HGB Conc 30.8 g/dL (31.6-35.5); Mean Corpuscular Volume 90.8 fL (83.0-100.0); Mean Platelet Volume 10.8 fL (9.4-12.4); Monocytes # 0.4 K/mcL (0.0-1.3); Platelet Count 173 K/mcL (140-400); Red Blood Count 3.36 M/mcL (3.82-4.97); Red Cell Distribution Width 16.8 % (11.5-14.5); Segmented Neutrophils % 83.1 %; White Blood Count 4.8 K/mcL (4.3-11.1)
[2020-01-12 03:59] LABS: BUN/Creatinine Ratio 33 (6-26); Blood Urea Nitrogen 20 mg/dL (8-23); Carbon Dioxide 26 mEq/L (23-29); Chloride 109 mEq/L (98-107); Glucose 107 mg/dL (70-105); Magnesium 1.7 mg/dL (1.6-2.6); Osmolality,Calculated 297 (280-300); Phosphorous 2.8 mg/dL (2.7-4.5); Potassium 3.6 mEq/L (3.5-5.1); Sodium 142 mEq/L (136-145); eGFR For African Americans > 60 (> 60); eGFR For Non-African Americans > 60 (> 60)
[2020-01-12] MEDS ORDERED: CefTRIAXone 1,000 MG VIAL ONE (08:09)
[2020-01-12] MEDS: Divalproex (12 HR) 250 MG TABLET PO SCH (08:19)
[2020-01-12] MEDS: Apixaban 5 MG TABLET PO SCH (08:20)
[2020-01-12] MEDS: metroNIDAZOLE 500 MG TABLET PO SCH (08:20)
[2020-01-12] MEDS: Insulin LISPRO 300 UNITS/3 ML VIAL SQ SCH ×2 (08:22→12:52)
[2020-01-12] MEDS: cefTRIAXone 1,000 MG in 0.9 % Sodium Chloride Mini Bag 100 ML IVPB SCH (08:41)
[2020-01-12] MEDS ORDERED: Azithromycin 250 MG TABLET PO SCH (09:00)
[2020-01-12] MEDS ORDERED: methylPREDNISolone 125 MG/2 ML VIAL IVP SCH (09:00)
[2020-01-12] MEDS ORDERED: Furosemide 40 MG TABLET PO SCH (09:00)
[2020-01-12 10:55] VITALS: BP 129/79
== END 2020-01-12 15:46 | DRG 871 ==
LOC: CDU → SUATTDRO 21:17 → 2ANU 23:30 → SUATTDRO 01-09 11:24
PROVIDERS: ADMIT Internal Medicine; ATTEND Internal Medicine